=== PATIENT | female | born 1950 | race Caucasian/White ===

== ENCOUNTER 2016-07-11 12:24 | Emergency (ER) | payer BC ==
--- NOTE | ~2016-07-11 | CT4 ---
[facility] A Service of [facility] RADIOLOGY TEXT RESULTS PATIENT: GARRET ALLEN LOCATION: [facility] : 50 UNIT #: [id number] AGE: [address]: Sidney Ospina MD SEX: F ORDER DR: [id number] [facility] [address] [place], [place] [address] [id number] E MR#: [id number] Acc #: [id number] NAME: GARRET ALLEN. : 1950 SEX: F STUDY DATE/TIME: 07/11/2016 12:04 UNIT: [facility] ROOM: STUDY DESCRIPTION: CT Abd and Pelv Wo Cont Attending Physician: Sidney Ospina M.D. Ordering Physician: Sidney Ospina M.D. Primary Care Physician: No Primary Care Physician MEDICAL IMAGING REPORT This report is preliminary unless electronic signature is present EXAM CT of the abdomen and pelvis without contrast. INDICATIONS Left flank pain since at June. TECHNIQUE Axial CT images were obtained from the dome of the diaphragm through the symphysis pubis. No oral or intravenous contrast material was administered. FINDINGS Images through the lung bases demonstrate minimal dependant atelectasis. No renal stones are identified on the left. There is no hydroureteronephrosis. No distal ureteral or bladder stones are seen on the left; however, the patient does have a 4-mm nonobstructing stone identified within the inferior pole of the right kidney. Patient does appear to have bilateral renal cysts. This patient's common bile duct is markedly dilated, measuring up to 2.4 cm. Obvious obstructing lesion is not seen, but given the degree of dilatation, correlation with liver function test is recommended, as is consideration for ERCP or MRCP on a nonemergent outpatient basis. Spleen, pancreas, adrenal glands, stomach, and proximal small bowel all appear within normal limits. No free fluid or adenopathy is seen within the abdomen. There is no evidence of mechanical bowel obstruction. Patient does have some colonic diverticulosis without any evidence of diverticulitis. Uterus is surgically absent. Urinary bladder is within normal limits. No free fluid or adenopathy is identified within the pelvis. Patient's gallbladder and appendix are surgically absent, per history. 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 IMPRESSION [facility]. [facility] A Service of [facility] RADIOLOGY TEXT RESULTS PATIENT: GARRET ALLEN LOCATION: [facility] : 50 UNIT #: [id number] AGE: [address]: Sidney Ospina MD SEX: F ORDER DR: 1. No etiology for the patient's left flank pain is identified. No stones are identified on the left, and while the patient does have some colonic diverticulosis, there is no evidence of diverticulitis. 2. The patient does have marked dilatation of the common bile duct measuring up to 02.4 cm. No obvious obstructing lesion is seen. However, given the degree of dilatation, I would suggest correlation with liver function test as well as consideration for MRCP or ERCP on a nonemergent outpatient basis. Some degree of common bile duct dilatation is common following cholecystectomy. However, this degree of dilatation would be out of proportion for that procedure. 3. 4-mm nonobstructing stone identified within the inferior pole of the right kidney. 4. Please see the body of the report for any other additional incidental findings. Dictated by... Kaylee Becerril M.D. THIS IS AN ELECTRONICALLY VERIFIED REPORT Kaylee Becerril M.D. at 07/11/2016 6:55 PM AFF/js TD: 07/11/2016 13:42 JOB #: [id number] MEDICAL IMAGING REPORT Page 1 of 1 COPY
--- NOTE | ~2016-07-11 | EKG ---
PATIENT: GARRET ALLEN UNIT #: [id number] Ventricular Rate: 81 BPM Atrial Rate: 81 BPM P-R Interval: 182 ms QRS Duration: 94 ms Q-T Interval: 392 ms QTC Calculation(Bezet): 455 ms P [place]: 60 degrees Calculated R [place]: 19 degrees Calculated T [place]: 53 degrees Diagnosis Line: Normal sinus rhythm Diagnosis Line: Possible Left atrial enlargement Diagnosis Line: Borderline ECG Diagnosis Line: No previous ECGs available Diagnosis Line: Confirmed by PAM LANDRY MD ([id number]) on Diagnosis Line: 07/11/2016 9:36:51 PM INTERPRETING MD: MICHELLE
[2016-07-11 11:29] LABS: URINE SOURCE CLEAN CATCH
[2016-07-11 11:48] LABS: URINE APPEARANCE CLEAR; URINE BILIRUBIN NEG (NEG); URINE BLOOD NEG (NEG); URINE COLOR YELLOW; URINE GLUCOSE NEG (NEG); URINE KETONE NEG (NEG); URINE LEUKOCYTE ESTERASE NEG (NEG); URINE NITRATE NEG (NEG); URINE PROTEIN NEG (NEG); URINE SPECIFIC GRAVITY 1.014 (1.003-1.035); URINE UROBILINOGEN 0.2 MG/DL (NEG)
[2016-07-11 12:00] LABS: BASOPHIL% 0.4 % (0-2.5); EOSINOPHIL# 0.1 X10e3 (0-0.7); EOSINOPHIL% 1.3 % (0.0-7.0); HEMATOCRIT 40.3 % (35.0-45.0); HEMOGLOBIN 13.8 gm/dL (12.0-16.0); LYMPHOCYTE# 1.6 X10e3 (1.0-3.5); LYMPHOCYTE% 16.7 % (17.0-45.0); MEAN CELL VOLUME 81.9 FL (83-96); MEAN CORPUSCULAR HEMOGLOBIN 28.1 PG (28-34); MEAN CORPUSCULAR HGB CONC 34.2 g/dL (30-36); MEAN PLATELET VOLUME 8.2 FL (6.5-11.5); MONOCYTE# 0.4 X10e3 (0-1.0); MONOCYTE% 4.2 % (3.0-12.0); NEUTROPHIL# 7.6 X10e3 (1.5-7.1); NEUTROPHIL% 77.4 % (40-75); PLATELET COUNT 230 X10e3 (140-420); RED BLOOD COUNT 4.92 X10e (3.90-5.30); RED CELL DISTRIBUTION WIDTH 13.4 % (11.0-15.5); WHITE BLOOD COUNT 9.8 X10e3 (4.0-10.5)
[2016-07-11 12:04] LABS: CULTURE INDICATED? NO
[2016-07-11 12:08] LABS: DIFF IND NO
[~2016-07-11 12:24] MED LIST: ATACAND16 MG PO; BENADRYL25 M3 PO; MEDROL4 MG/DOSE- PO; NORVASC PO; PREMARIN0.625 MG PO
[2016-07-11 12:32] LABS: ALBUMIN SERUM 3.6 g/dL (3.5-5.0); BILIRUBIN, DIRECT 0.1 mg/dL (0.0-0.2); BILIRUBIN,INDIRECT 0.7 mg/dL (0.0-0.9); BILIRUBIN,TOTAL 0.8 mg/dL (0.2-2.0); BUN/CREATININE RATIO 16.66; CALCIUM SERUM 9.2 mg/dL (8.4-10.2); CREATININE SERUM 0.6 mg/dL (0.6-1.4); POTASSIUM 3.7 mmol/L (3.5-5.1); PROTEIN TOTAL SERUM 7.2 g/dL (6.0-8.3)
== END 2016-07-11 13:20 | disposition home or self-care (01) ==
LOC: CED 12:24
PROVIDERS: Emergency Medicine
DX: S39.012A Strain of muscle, fascia and tendon of lower back, initial encounter (principal); I10 Essential (primary) hypertension; Z79.899 Other long term (current) drug therapy; Z88.5 Allergy status to narcotic agent; X58.XXXA Exposure to other specified factors, initial encounter
CPT/HCPCS: 36415; 74176; 80048; 80076; 81003; 83690; 85025; 93005; 96361; 96374; 96375; 99284; J1885; J2270